=== PATIENT | male | born 1995 | race African-American/Black ===

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

== ENCOUNTER 2017-05-15 00:39 | Emergency (ER) | payer OTHER ==
[~2017-05-15] VITALS: Ht 177.8 cm; Wt 54.4 kg
[~2017-05-15 00:39] MED LIST: PHENERGAN 25 MG25 M1 PO; PHENERGAN25 M1 RC
[2017-05-15 01:40] LABS: HEMATOCRIT 41.3 % (42.0-52.0); HEMOGLOBIN 13.5 gm/dL (14.0-18.0); MCH 25.3 pg (26.0-34.0); MCHC 32.8 % (28.0-37.0); MCV 77.1 fL (80.0-100.0); RBC 5.35 mil/uL (4.50-6.00); RDW 16.6 % (10.5-14.5); WBC 10.2 thou/uL (4.0-11.0)
[2017-05-15 01:55] LABS: CALCIUM 9.8 mg/dL (8.5-10.1); CREATININE 0.9 mg/dL (0.7-1.3); POTASSIUM 4.1 mmol/L (3.5-5.1); TOTAL BILIRUBIN 1.9 mg/dL (<0.1-1.0)
[2017-05-15 01:56] LABS: ALBUMIN 4.8 g/dL (3.4-5.0); TOTAL PROTEIN 8.7 g/dL (6.4-8.2)
[2017-05-15 02:06] LABS: URINE COLOR YELLOW; URINE GLUCOSE-RANDOM* NEGATIVE (Negative); URINE KETONES 2+ (Negative); URINE PROTEIN (DIPSTICK) 2+ (Negative)
[2017-05-15 02:07] LABS: CASTS None Seen /LPF (None Seen); CRYSTALS None Seen /LPF (None Seen); SQUAMOUS 0-3 Few /LPF (0-3); URINE BILIRUBIN NEGATIVE (Negative); URINE BLOOD NEGATIVE (Negative); URINE LEUKOCYTES-REFLEX NEGATIVE (Negative); URINE RBC 0-2 Rare /HPF (0-2); URINE WBC-REFLEX 0-5 Rare /HPF (0-5)
[2017-05-15] MEDS ORDERED: PRILOSEC 20 MG20 MG PO (03:16)
[2017-05-15] MEDS ORDERED: TRAMADOL 50 MG50 MG PO (03:16)
[2017-05-15] MEDS ORDERED: ZOFRAN ODT8 MG PO (03:16)
[2017-05-15 04:27] VITALS: BP 99/40
== END 2017-05-15 03:17 | disposition home or self-care (01) ==
LOC: ER 00:39
PROVIDERS: Emergency Medicine
DX: R10.10 Upper abdominal pain, unspecified (principal); R11.2 Nausea with vomiting, unspecified; F12.10 Cannabis abuse, uncomplicated; Z88.6 Allergy status to analgesic agent

== ENCOUNTER 2017-12-06 18:49 | Emergency (ER) | payer OTHER ==
[~2017-12-06] VITALS: Ht 165.1 cm; Wt 52.2 kg
[~2017-12-06 18:49] MED LIST changes: +PRILOSEC 20 MG20 MG PO; +TRAMADOL 50 MG50 MG PO; +ZOFRAN ODT8 MG PO
[2017-12-06 20:20] LABS: URINE BILIRUBIN NEGATIVE (Negative); URINE BLOOD TRACE (Negative); URINE CLARITY CLEAR; URINE COLOR YELLOW; URINE GLUCOSE-RANDOM* NEGATIVE (Negative); URINE KETONES NEGATIVE (Negative); URINE LEUKOCYTES-REFLEX NEGATIVE (Negative); URINE NITRITE-REFLEX NEGATIVE (Negative); URINE PROTEIN (DIPSTICK) 1+ (Negative); URINE SPECIFIC GRAVITY 1.015 (1.005-1.035)
[2017-12-06 20:21] LABS: ABSOLUTE NEUTROPHILS 3.5 thou/uL (1.4-8.2); BASOPHILS 0.5 % (0.0-2.0); EOSINOPHILS 0.2 % (0.0-3.0); HEMATOCRIT 40.3 % (42.0-52.0); HEMOGLOBIN 13.5 gm/dL (14.0-18.0); LYMPHOCYTES 24.1 % (24.0-44.0); MCH 25.6 pg (26.0-34.0); MCHC 33.4 g/dL (28.0-37.0); MCV 76.6 fL (80.0-100.0); MONOCYTES 7.7 % (1.0-8.0); PLATELET COUNT 179 thou/uL (150-400); POLYS 67.5 % (36.0-66.0); RBC 5.27 mil/uL (4.50-6.00); RDW 16.2 % (10.5-14.5); WBC 5.1 thou/uL (4.0-11.0)
[2017-12-06 20:29] LABS: SQUAMOUS None Seen /LPF (0-3)
[2017-12-06 20:29] LABS: CALCIUM 9.4 mg/dL (8.5-10.1)
[2017-12-06 20:30] LABS: BACTERIA-REFLEX None Seen /HPF (None Seen); CRYSTALS None Seen /LPF (None Seen); HYALINE CASTS 0-3 Few /LPF (None Seen); MUCUS >6 Heavy strn/LPF (None Seen); URINE RBC 0-2 Rare /HPF (0-2); URINE WBC-REFLEX 0-5 Rare /HPF (0-5)
[2017-12-06 20:35] LABS: ALBUMIN 4.3 g/dL (3.4-5.0); TOTAL BILIRUBIN 1.6 mg/dL (<0.1-1.0); TOTAL PROTEIN 7.8 g/dL (6.4-8.2)
[2017-12-06] MEDS ORDERED: NORCO 5-325 TA1 EACH PO (21:59)
[2017-12-06] MEDS ORDERED: ZOFRAN4 MG PO (21:59)
[2017-12-06] MEDS ORDERED: CARAFATE 1 GM TA1 G1 PO (21:59)
[2017-12-06] MEDS ORDERED: PROTONIX40 MG PO (21:59)
== END 2017-12-06 22:33 | disposition home or self-care (01) ==
LOC: ER 18:49
PROVIDERS: Emergency Medicine
DX: K29.00 Acute gastritis without bleeding (principal); K22.6 Gastro-esophageal laceration-hemorrhage syndrome; Z88.6 Allergy status to analgesic agent

== ENCOUNTER 2018-05-07 12:14 | Emergency (ER) | payer OTHER ==
[~2018-05-07] VITALS: Ht 177.8 cm; Wt 77.1 kg
[~2018-05-07 12:14] MED LIST changes: +CARAFATE 1 GM TA1 G1 PO; +NORCO 5-325 TA1 EACH PO; +PROTONIX40 MG PO; +ZOFRAN4 MG PO
[2018-05-07 12:48] LABS: ABSOLUTE NEUTROPHILS 2.9 thou/uL (1.4-8.2); BASOPHILS 0.5 % (0.0-2.0); EOSINOPHILS 0.5 % (0.0-3.0); HEMATOCRIT 47.3 % (42.0-52.0); HEMOGLOBIN 16.2 gm/dL (14.0-18.0); LYMPHOCYTES 33.7 % (24.0-44.0); MCH 26.5 pg (26.0-34.0); MCHC 34.4 g/dL (28.0-37.0); MCV 77.2 fL (80.0-100.0); MONOCYTES 11.7 % (1.0-8.0); PLATELET COUNT 226 thou/uL (150-400); POLYS 53.6 % (36.0-66.0); RBC 6.12 mil/uL (4.50-6.00); RDW 16.5 % (10.5-14.5); WBC 5.4 thou/uL (4.0-11.0)
[2018-05-07 12:55] LABS: CALCIUM 10.1 mg/dL (8.5-10.1); CREATININE 1.1 mg/dL (0.7-1.3); POTASSIUM 3.5 mmol/L (3.5-5.1)
[2018-05-07 13:00] LABS: ALBUMIN 4.9 g/dL (3.4-5.0); DIRECT BILIRUBIN 0.4 mg/dL (<0.1-0.3); TOTAL BILIRUBIN 2.3 mg/dL (<0.1-1.0); TOTAL PROTEIN 9.5 g/dL (6.4-8.2)
[2018-05-07] MEDS ORDERED: REGLAN 10 MG TA10 MG PO (14:10)
[2018-05-07 14:25] VITALS: BP 106/61
== END 2018-05-07 14:26 | disposition home or self-care (01) ==
LOC: ER 12:14
PROVIDERS: Physician Assistant
DX: R10.11 Right upper quadrant pain (principal); R11.2 Nausea with vomiting, unspecified; Z88.6 Allergy status to analgesic agent